=== PATIENT | male | born 1970 | race Caucasian/White ===

== ENCOUNTER 2024-01-08 08:13 | Outpatient (AMB) | payer OTHER, SELFPAY ==
--- NOTE | 2024-01-08 08:32 | MHC.OFFVIS ---
Vital Signs 01/08/24 08:34 Height 5 ft 10 in Weight 251 lb BMI 36.0 BP 124/82 Blood Pressure Location Rt brachial Position Sitting Pulse 93 Pulse Source Pulse Oximeter Pulse Oximetry (%) 98 Oxygen Delivery Method Room Air Intake Visit Reasons: [id number] Intake Note: Patient presents for headaches. patient states he' here for sleep apnea he has a machine but needs supplies. he stated he does gets headaches Allergies No Known Allergies Allergy (Verified 01/08/24 08:37) Medication List - Last Reconciled 01/08/24 by Ailyn Doty, FRAME OPENER clonazepam mg PO duloxetine 60 mg PO QAM lithium carbonate ER mg PO magnesium oxide 400 mg PO BEDTIME 30 days naratriptan take 1/2 - 1 tab at onset of headache; if no relief may repeat 1 tab after at least 4 hrs; max = 2 tabs/24 hrs orally PRN; 30 days quetiapine 100 mg PO BEDTIME riboflavin (vitamin B2) 400 mg PO DAILY 30 days verapamil ER 100 mg PO BEDTIME 30 days HPI Comments Details: Right-handed 53-yr-old male presents for new pt evaluation of headache disorder. He would also like to discuss his sleep apnea treatment. Pt reports he has had headaches and migraines his entire life, and his family has encouraged him to discuss this with his PCP as he has frequent headaches. PMH and ROS are notable for:? General: fatigue, poor sense of smell- lifelong d/t allergies, Neuro: blurry vision, glasses, diabetic neuropathy Musculoskeletal disorders or injury: .occass low back pain Mood d/o: Depression- mild, Bilpolar d/o (initially more rapid-cycling presentation then more depression) - stable x's years. F/b Christopher Jarquin special duty nurse Respiratory d/o: Asthma Endocrine or metabolic d/o: Diabetes- had recent [facility] hospitalization d/t hyperglycemia w/ HgA1C 11% as pt had stopped diabetes tx- thinking he no longer needed it, has since resumed and working w/ endocrinology. GI d/o: Constipation or loose stools: sometimes Pertinent denials include: History of concussion/head injury, History of seizure, syncope, or drop attacks, Family history of migraine or other headache disorder Lifestyle considerations: Sleep routine: Usual bedtime: 11:30pm and wake-up time: 7am Sleep difficulties: Endorses: NOLAN w/ h/o UPPP tx- has a CPAP machine, but has been unable to use for sometime d/t needs new supplies- his current supplies are broken. His resp supplier was ? [employer]. Endorses: Snoring, diff staying asleep, Excessive daytime sleepiness, Fatigue,Apneas, Gasping Arousals, Restless legs at times, In the past- Bruxism- resolved w/ having dentures. Caffeine use: 2-3 cups per day Substance use: Tobacco, Marijuana, Alcohol- denies current use. 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 Family planning: none Headache questionnaire:? Previous work-up: Head imaging in the past. Types of headache disorders: 2- he states he has a headache and a migraine. Typical headache characteristics: Prodrome symptoms: Unsure Aura: Unsure Pain intensity: mild-moderate Location, quality, characteristics: bilateral frontal and maxillary region- like a hoh Associated symptoms: he is not exactly sure- mild photophobia/phonophobia, fatigue, cognitive difficulties, activity intolerance. Postdrome: Unsure Triggers: not that he is aware of. Time of day: No specific time of day Duration and Frequency: Unsure- has not tracked it. Lasts several hours- 3-5 or 4-6 hrs. How does headache impact your life? may have to lay down Typical migraine headache characteristics: Prodrome symptoms: None Aura: unsure Pain intensity: severe Location, quality, characteristics: Starts as a left temporal (sometimes behind the left eye) throbbing- like the vein is pumping. Associated symptoms: photophobia, phonophobia, nausea, rarely vomiting, dizziness, fatigue, cognitive difficulties, activity intolerance, Postdrome: Fades away Triggers: unsure Time of day: Usually mid-afternoon, but may occur when he wakes up in the am. Duration and Frequency: Usually 1 day, but can last up to 3 days. Tend to occur in clusters- frequently x's a few months and then no migraine x's a few months. How does headache impact your life? Unable to do his daily activities. Current acute medication use/interventions: OTC Goody powder- helps some. Current preventative medication use: Nothing specific- but is on duloxetine and lithium. Non-pharmacological interventions: rest, showers, ice [facility] Family History (Updated 01/08/24 @ 08:41 by SHIRLEY Nguyen) Father FH: heart attack Social History (Updated 12/31/23 @ 14:31 by SHIRLEY Nguyen) Alcohol intake: never Patient Tobacco Use Status: Never used Tobacco Physical Exam Vital Signs: Last Vital Signs Pulse 93 01/08/24 08:34 BP 124/82 01/08/24 08:34 Pulse Ox 98 01/08/24 08:34 Oxygen Delivery Method Room Air 01/08/24 08:34 BMI result Body Mass Index 36.0 Const Orientation/consciousness: patient oriented x3 HEENT Other: Absence of uvula. Mallampati stage IV Resp Effort & Inspection: normal respiratory effort and able to speak in complete sentences Neuro Other: No palpable scalp tenderness. Good cervical range of motion without discomfort. Current low back pain, slow to stand. Deferred tandem walk and Romberg test due to current low back pain. General: patient oriented x3 Cranial nerves: Yes CN's II-XII intact bilaterally Cognition (Neuro): normal cognition Gait exam (Neuro): Antalgic gait present Motor exam (neuro): 5/5 motor strength present throughout Deep tendon reflexes (DTR's): Right triceps reflex intensity grade: 2+, Left triceps reflex intensity grade: 2+, Rt Biceps (C5, C6): 2+, Left biceps reflex intensity grade: 2+, Right brachioradialis reflex intensity grade: 2+, Left brachioradialis reflex intensity grade: 2+, Right patellar reflex intensity grade: 2+ and Left patellar reflex intensity grade: 2+ Coordination: [id number] test normal Pupils: Normal pupillary reactivity/response: bilateral Psych Appearance: grossly normal Mental Status: mental status grossly normal Speech and movement: Normal speech and movement present Affect: normal affect Attitude: cooperative Thought process: Normal thought process present Assessment & Plan Assessment & Plan (1) Migraine without aura: Code(s): G43.009 - Migraine without aura, not intractable, without status migrainosus Category: Medical (2) NOLAN (obstructive sleep apnea): Code(s): G47.33 - Obstructive sleep apnea (adult) (pediatric) Category: Medical Plan For NOLAN: Will request last sleep study report from [facility]. Will reach out to [facility] care, to see if patient can be reestablished and start receiving CPAP supplies again. If not possible, we will arrange for pt to have a f/u HST. For overall headache management: Optimize good self-care, including but not limited to maintaining a healthy diet, adequate fluid intake, adequate sleep, and engaging in regular physical activity. Track headaches, especially after any treatment regimen changes. [employer] is one of many headache tracking apps. Information shared on non-pharmacological interventions which may help to alleviate headache attack burden. For acute headache treatment: Discussed importance of taking acute medications at the first sign of headache, however stressed importance of avoiding acute medication overuse (especially with combined headache medications). Trial Naratriptan 2.5mg prn, MR in 4 hrs. Potential adverse effects of triptans, including but not limited to nausea, fatigue, chest tightness/tingling (usually passes within a few minutes), medication overuse headaches. Previous acute migraine medication trials: Sumatriptan- not tolerated- caused intolerable weird sensation. Acute migraine medication contraindications: None at this time Future considerations- gepant For headache prevention medication: Preventative medications should be taken routinely as prescribed for best effect, it may take several weeks for full effect to take effect. Start Riboflavin 400mg qam Start Magnesium 400mg qhs Start Verapamil ER 100mg qhs, Previous migraine prevention medication trials: Lamotrigene- used for mood, no effect on headaches. Migraine prevention medication contraindications: Candasartan d/t drug-drug interaction w/ lithium. Anti-depressants and Topiramate d/t risk for decompensation of currently well-controlled bipolar d/o. Propranolol d/t asthma dx Pt seen in collaboration w/ Dr Larisa Jean. Pt to follow-up in 3-6 months or sooner prn. Medications: New magnesium oxide may hold for loose stools 400 mg PO BEDTIME 30 tabs 6RF 30 days verapamil ER 100 mg PO BEDTIME 30 caps 6RF 30 days riboflavin (vitamin B2) 400 mg PO DAILY 30 tabs 6RF 30 days naratriptan take 1/2 - 1 tab at onset of headache; if no relief may repeat 1 tab after at least 4 hrs; max = 2 tabs/24 hrs orally PRN; 12 tabs 6RF migraine headache 30 days Coding Level of Care Code New Pt Level 4 (00464) Diagnoses Migraine without aura G43.009 NOLAN (obstructive sleep apnea) G47.33
[2024-01-08 08:34] VITALS: BP 124/82; PULSE 93; O2SAT 98; BMI 36.0
== END 2024-01-08 09:58 | disposition home or self-care (01) ==
PROVIDERS: PCP Internal Medicine; Visit Provider Nurse Practitioner Family
DX: G43.009 Migraine without aura, not intractable, without status migrainosus (principal); G47.33 Obstructive sleep apnea (adult) (pediatric)
CPT/HCPCS: 99204

== ENCOUNTER → 2024-01-08 08:13 | Outpatient (BNVA) | payer BC, SELFPAY | PROVIDERS: PCP Internal Medicine; Visit Provider Nurse Practitioner Family ==

== ENCOUNTER → 2024-03-16 09:58 | Outpatient (BNVA) | payer OTHER, SELFPAY | PROVIDERS: PCP Internal Medicine; Visit Provider Nurse Practitioner Family ==

== ENCOUNTER 2024-07-27 14:27 | Outpatient (AMB) | payer BC, SELFPAY ==
--- OUTSIDE RECORDS SUMMARY | 2024-07-27 14:30 | XMS_ITS | Clinical Summary ---
Author Organization [facility] Address [address] [place] [address] Care Team Providers Care Adjunct Faculty Instructor Name Role Phone Thomas Jean-Baptiste MD Primary Care Provider [phone] Social History Tobacco Use Types Packs/Day Years Used Date Smoking Tobacco: Never Assessed Sex and Gender Information Value Date Recorded Sex Assigned at Not on file Gender Identity Not on file Sexual Orientation Not on file Last Filed Vital Signs Vital Sign Reading Time Taken Comments Blood Pressure 150/96 06/30/2023 1:01 PM EST Sit ting L Arm Pulse 96 06/30/2023 1:01 PM EST Temperature - - Respiratory Rate - - Oxygen Saturation - - Inhaled Oxygen Concentration - - Weight - - Height - - Body Mass Index - - Plan of Treatment Health Maintenance Due Date Last Done Comments DTaP,Tdap,and Td Vaccines (1 - Tdap) 1989 Hepatitis B Vaccines (1 of 3 - 19+ 3-dose series) 1989 Zoster Vaccines (1 of 2) 2020 COVID-19 Vaccine (2023-2 5 season) 2024 Influenza Vaccine (#1) 2024 Cholesterol Screening (Lipid Panel) 05/18/2024 Colorectal Cancer Screening: Colonoscopy 05/18/2024 Depression Screening 05/18/2024 HIV Screening 05/18/2024 Hepatitis C Screening 05/18/2024 Social Influencers of Health Screening 05/18/2024 HIB Vaccines Aged Out No longer eligi ble based on patient's age to complete this topic HPV Vaccines Aged Out No longer eligi ble based on patient's age to complete this topic Hepatitis A Vaccines Aged Out No long er eligible based on patient's age to complete this topic IPV Vaccines Aged Out No longer eligi ble based on patient's age to complete this topic MMR Vaccines Aged Out No longer eligi ble based on patient's age to complete this topic Meningococcal ACWY Vaccine Aged Out N o longer eligible based on patient's age to complete this topic Pneumococcal Vaccine: Pediat rics (0 to 5 Years) and At-Risk Patients (6 to 64 Years) Aged Out No longer eligible b ased on patient's age to complete this topic RSV Immunization Patients Un damon 20 months Aged Out No longer eligible b ased on patient's age to complete this topic Varicella Vaccines Aged Out No longer eligible based on patient's age to complete this topic Care Teams Adjunct Faculty Instructor Relationship Specialty Start Date End Date Thomas Jean-Baptiste MD [address] [place] [address] PCP - General 06/23/12
[2024-07-27 15:14] VITALS: BP 124/90; PULSE 104; O2SAT 98; BMI 36.4
--- NOTE | 2024-07-27 15:14 | A.OFFVIS_ITS ---
Vital Signs 07/27/24 15:14 Height 5 ft 10 in Weight 254 lb BMI 36.4 BP 124/90 H Blood Pressure Location Rt brachial Position Sitting Pulse 104 H Pulse Source Pulse Oximeter Pulse Oximetry (%) 98 Oxygen Delivery Method Room Air Intake Visit Reasons: 6 Month F/U Pediatric Dietician Required: No Accompanied by: Self / Same As Patient Allergies No Known Allergies Allergy (Verified 07/27/24 15:17) Medication List - Last Reconciled 07/27/24 by TAMIA Barth clonazepam mg PO duloxetine 60 mg PO QAM fremanezumab-vfrm (Ajovy) 225 mg (1.5 mL) subcut ONCE 30 days lithium carbonate ER mg PO magnesium oxide 400 mg PO BEDTIME 30 days metoclopramide HCl 5 mg PO QID PRN 30 days quetiapine 100 mg PO BEDTIME riboflavin (vitamin B2) 400 mg PO DAILY 30 days ubrogepant (Ubrelvy) 50 - 100 mg (0.5 - 1 x 100 mg) PO ONCE PRN 30 days verapamil ER 100 mg PO BEDTIME 30 days Do you need a note to return to daycare/school/sports/work: No HPI Comments Details: Right-handed 53-yr-old male presents for f/u migraine and NOLAN. Pt reports his migraine attacks have been better since March when patient was started on Ajovy and p.r.n. metoclopramide due to persistent worsening migraine attacks. Recently he went a few weeks without a migraine. He is tolerating Ajovy well. However, he recently had the Norovirus, and he had increased 3-4 migraine days in a row. He did not tolerate naratriptan, and thus was started on Ubrelvy. The Ubrelvy is helpful, however sometimes effect wears off after a few hours. He has not tried taking a 2nd dose. Metoclopramide is helpful for headache and nausea. He continues to have excessive daytime sleepiness, finding himself more restless, especially when trying to go to sleep- has an urge to move. He is not currently using his CPAP machine- as the mask and tubing are broken. His machine is at least 10-15 yrs old. He states he has not received new CPAP supplies from [employer], but he believes he did pay a feet to [employer] over the summer. He also notes he often feels bloated, and cannot eat much d/t difficulty swallowing d/t achalasia of esophagus. He has had increased nausea and decreased appetite since he had Norovirus. 01/08/24, Initial HPI: Pt reports he has had headaches and migraines his entire life, and his family has encouraged him to discuss this with his PCP as he has frequent headaches. PMH and ROS are notable for:? General: fatigue, poor sense of smell- lifelong d/t allergies, Neuro: blurry vision, glasses, diabetic neuropathy Musculoskeletal disorders or injury: .occass low back pain Mood d/o: Depression- mild, Bilpolar d/o (initially more rapid-cycling presentation then more depression) - stable x's years. F/b Christopher Jarquin slip injector and applicator Respiratory d/o: Asthma Endocrine or metabolic d/o: Diabetes- had recent [facility] hospitalization d/t hyperglycemia w/ HgA1C 11% as pt had stopped diabetes tx- thinking he no longer needed it, has since resumed and working w/ endocrinology. GI d/o: Constipation or loose stools: sometimes Pertinent denials include: History of concussion/head injury, History of seizure, syncope, or drop attacks, Family history of migraine or other headache disorder Lifestyle considerations: Sleep routine: Usual bedtime: 11:30pm and wake-up time: 7am Sleep difficulties: Endorses: NOLAN w/ h/o UPPP tx- has a CPAP machine, but has been unable to use for sometime d/t needs new supplies- his current supplies are broken. His resp supplier was ? [employer]. Endorses: Snoring, diff staying asleep, Excessive daytime sleepiness, Fatigue,Apneas, Gasping Arousals, Restless legs at times, In the past- Bruxism- resolved w/ having dentures. Caffeine use: 2-3 cups per day Substance use: Tobacco, Marijuana, Alcohol- denies current use. 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 Family planning: none Headache questionnaire:? Previous work-up: Head imaging in the past. Types of headache disorders: 2- he states he has a headache and a migraine. Typical headache characteristics: Prodrome symptoms: Unsure Aura: Unsure Pain intensity: mild-moderate Location, quality, characteristics: bilateral frontal and maxillary region- like a [place]ish Associated symptoms: he is not exactly sure- mild photophobia/phonophobia, fatigue, cognitive difficulties, activity intolerance. Postdrome: Unsure Triggers: not that he is aware of. Time of day: No specific time of day Duration and Frequency: Unsure- has not tracked it. Lasts several hours- 3-5 or 4-6 hrs. How does headache impact your life? may have to lay down Typical migraine headache characteristics: Prodrome symptoms: None Aura: unsure Pain intensity: severe Location, quality, characteristics: Starts as a left temporal (sometimes behind the left eye) throbbing- like the vein is pumping. Associated symptoms: photophobia, phonophobia, nausea, rarely vomiting, dizziness, fatigue, cognitive difficulties, activity intolerance, Postdrome: Fades away Triggers: unsure Time of day: Usually mid-afternoon, but may occur when he wakes up in the am. Duration and Frequency: Usually 1 day, but can last up to 3 days. Tend to occur in clusters- frequently x's a few months and then no migraine x's a few months. How does headache impact your life? Unable to do his daily activities. Current acute medication use/interventions: OTC Goody powder- helps some. Current preventative medication use: Nothing specific- but is on duloxetine and lithium. Non-pharmacological interventions: rest, showers, ice PFSH Family History Father FH: heart attack Social History Alcohol intake: never Patient Tobacco Use Status: Never used Tobacco Physical Exam Vital Signs: Last Vital Signs Pulse 104 H 07/27/24 15:14 BP 124/90 H 07/27/24 15:14 Pulse Ox 98 07/27/24 15:14 Oxygen Delivery Method Room Air 07/27/24 15:14 BMI result Body Mass Index 36.4 Const Orientation/consciousness: patient oriented x3 HEENT Other: Absence of uvula. Mallampati stage IV Resp Effort & Inspection: normal respiratory effort and able to speak in complete sentences Neuro General: patient oriented x3 Cranial nerves: Yes CN's II-XII intact bilaterally Cognition (Neuro): normal cognition Gait exam (Neuro): Antalgic gait present Motor exam (neuro): 5/5 motor strength present throughout Psych Appearance: grossly normal Mental Status: mental status grossly normal Speech and movement: Normal speech and movement present Affect: normal affect Attitude: cooperative Thought process: Normal thought process present Assessment & Plan Assessment & Plan (1) Migraine without aura: Code(s): G43.009 - Migraine without aura, not intractable, without status migrainosus Category: Medical (2) NOLAN (obstructive sleep apnea): Code(s): G47.33 - Obstructive sleep apnea (adult) (pediatric) Category: Medical (3) History of esophageal surgery: Comment: Peroral endoscopic myotomy (POEM) (11/24/2015) Code(s): Z98.890 - Other specified postprocedural states Category: Surgical (4) History of uvulopalatopharyngoplasty: Comment: Status post uvulopalatopharyngoplasty (04/10/2005) Code(s): Z98.890 - Other specified postprocedural states Category: Surgical (5) Hypersomnia: Code(s): G47.10 - Hypersomnia, unspecified Category: Medical Plan For NOLAN: We have been unable to obtain previous sleep study. Patient advised to undergo in-lab PSG to assess status of sleep apnea and for PLMS. In-lab PSG required due to history of UPPP surgery and presence of achalasia of esophagus Patient previous respiratory supply or was [facility] home care. For overall headache management: * Optimize good self-care, including but not limited to maintaining a healthy diet, adequate fluid intake, adequate sleep, and engaging in regular physical activity. * Track headaches, especially after any treatment regimen changes. Migraine [employer] is one of many headache tracking apps. * Information shared on non-pharmacological interventions which may help to alleviate headache attack burden. There was an interval request for brain MRI, however this was not done due to hospital required insurance information from patient, however headache burden has significantly improved. Thus we will hold brain MRI order for now. For acute headache treatment: Discussed importance of taking acute medications at the first sign of headache, however stressed importance of avoiding acute medication overuse (especially with combined headache medications). Continue Ubrogepant (Ubrelvy) 100mg tab, 1/2 - 1 tab (50-100mg) at onset of headache, may repeat in 2 hours. Max of 2 tabs (200mg) per 24 hours. May adjunct with OTC Tylenol 650mg q 4 hours, Ibuprofen 600mg q 6 hours, or Naproxen 440mg q 12 hrs prn. Continue metoclopramide 5 mg p.o. q.i.d. p.r.n. nausea and migraine headache. Previous acute migraine medication trials: Sumatriptan- not tolerated- caused intolerable weird sensation. Naratriptan 2.5 mg-not tolerated. Acute migraine medication contraindications: None at this time Future considerations- gepant For headache prevention medication: Continue Riboflavin 400mg qam Continue Magnesium 400mg qhs Continue Verapamil ER 100mg qhs, Continue Ajovy 225 mg subcu monthly, as patient has had greater than 50% reduction in monthly migraine days since starting Tx. Previous migraine prevention medication trials: Lamotrigene- used for mood, no effect on headaches. Migraine prevention medication contraindications: Candasartan d/t drug-drug interaction w/ lithium. Anti-depressants and Topiramate d/t risk for decompensation of currently well-controlled bipolar d/o. Propranolol d/t asthma dx Will follow-up upon review of above and patient to follow-up in clinic in 6 months or sooner prn. Orders: Orders RT PSG in-lab sleep study Today G47.10 - Hypersomnia, unspecified, G47.33 - Obstructive sleep apnea (adult) (pediatric), Z98.890 - Other specified postprocedural states Medications: New famotidine (Pepcid) 20 mg PO BEDTIME 30 days 30 tabs 1RF Refilled metoclopramide HCl 5 mg PO QID 30 days PRN 30 tabs 6RF nausea or migraine attack fremanezumab-vfrm (Ajovy) administer 225mg sc q month 225 mg (1.5 mL) subcut ONCE 30 days 1.5 mL 6RF ubrogepant (Ubrelvy) take at onset of migraine, may repeat in 2hrs (may take w/ Ibuprofen) 50 - 100 mg (0.5 - 1 x 100 mg) PO ONCE 30 days PRN 16 tabs 6RF migraine headache Coding Level of Care Code Est Pt Level 4 (83518) Diagnoses Migraine without aura G43.009 NOLAN (obstructive sleep apnea) G47.33 History of esophageal surgery Z98.890 History of uvulopalatopharyngoplasty Z98.890 Hypersomnia G47.10
== END 2024-07-27 16:06 | disposition home or self-care (01) ==
PROVIDERS: PCP Internal Medicine; Visit Provider Nurse Practitioner Family
DX: G43.009 Migraine without aura, not intractable, without status migrainosus (principal); G47.33 Obstructive sleep apnea (adult) (pediatric); Z98.890 Other specified postprocedural states; G47.10 Hypersomnia, unspecified
CPT/HCPCS: 99214

== ENCOUNTER → 2024-08-29 19:30 | Outpatient (BNV) | payer OTHER, SELFPAY | PROVIDERS: Visit Provider Psychiatry & Neurology Neurology | DX: G47.33 Obstructive sleep apnea (adult) (pediatric) (principal) | CPT/HCPCS: 95810 ==

== ENCOUNTER → 2024-08-29 20:30 | Outpatient (REF) | payer OTHER, SELFPAY ==
--- OUTSIDE RECORDS SUMMARY | 2024-08-29 21:52 | XMS_ITS | Clinical Summary ---
Author Organization [facility] Address [address] [place] [address] Care Team Providers Care Firestop/Containment Worker Name Role Phone Thomas Jean-Baptiste MD Primary Care Provider [phone] Social History Tobacco Use Types Packs/Day Years Used Date Smoking Tobacco: Never Assessed Sex and Gender Information Value Date Recorded Sex Assigned at Not on file Legal Sex Male 9:28 AM EST Gender Identity Not on file Sexual Orientation [...] of 3 - 19+ 3-dose series) 1989 Pneumococcal Vaccine: 50+ Ye ars (1 of 1 - PCV) 2020 Zoster Vaccines (1 of 2) 2020 COVID-19 Vaccine ( - 2023-2 5 season) 2024 Influenza Vaccine (#1) 2024 [...] patient's age to complete this topic Meningococcal B Vacine Aged Out No lo nger eligible based on patient's age to complete [...] age to complete this topic Care Teams Firestop/Containment Worker Relationship Specialty Start Date End Date Thomas Jean-Baptiste MD [address] [place] [id number] PCP - General 06/23/12
== END ==
LOC: HO.SL 20:30
PROVIDERS: Visit Provider Nurse Practitioner Family
DX: G47.33 Obstructive sleep apnea (adult) (pediatric) (principal); G47.10 Hypersomnia, unspecified; Z98.890 Other specified postprocedural states
CPT/HCPCS: 95810

== ENCOUNTER → 2024-12-16 15:00 | Outpatient (BNV) | payer OTHER, SELFPAY | PROVIDERS: PCP Internal Medicine; Visit Provider Psychiatry & Neurology Neurology | DX: G47.33 Obstructive sleep apnea (adult) (pediatric) (principal) | CPT/HCPCS: 95806 ==

== ENCOUNTER → 2024-12-16 15:17 | Outpatient (REF) | payer OTHER, SELFPAY | LOC: HO.SL 15:17 | PROVIDERS: PCP Internal Medicine; Visit Provider Nurse Practitioner Family | DX: G47.33 Obstructive sleep apnea (adult) (pediatric) (principal); Z98.890 Other specified postprocedural states | CPT/HCPCS: 95806 ==